=== PATIENT | male | born 1985 | race African-American/Black ===

== ENCOUNTER 2016-05-29 02:34 | Emergency (ER) | payer MEDICARE, OTHER ==
[~2016-05-29] VITALS: Ht 185.4 cm; Wt 99.8 kg
[~2016-05-29 02:34] MED LIST: GEODON20 MG ORAL; IBUPROFEN600 MG ORAL; RISPERDAL0.5 MG ORAL
[2016-05-29] MEDS ORDERED: NKM (02:39)
[2016-05-29 02:47] VITALS: BP 132/76
--- NOTE | 2016-05-29 02:48 | Emergency Room Report ---
History of Present Illness General Chief Complaint: General Complaint Source: Patient, EMS Present Illness HPI Is a 31-year-old male with no past medical history. He presents with chief complaint of multiple complaints. He complaining of headache, right-sided body filling dry, bilateral feet pain, generalized body pain. He [address] He denies any fever chills denies any nausea vomiting. Onset tonight. No other complaint. Allergies: Coded Allergies: No Known Allergies (Unverified , 05/29/16) Patient History Past Medical History: see triage record, old chart reviewed, psych hx Past Surgical History: other Pertinent Family History: none Social History: Denies: drug use Immunizations: other Reviewed Nursing Documentation: PMH: Agreed, PSxH: Agreed Nursing Documentation-PMH Past Medical History: No History, Except For Hx Neurological Problems: Yes - schizophrenia Review of Systems Eye: Denies: blurred vision, eye pain ENT: Denies: ear pain, nose congestion, throat swelling Respiratory: Denies: cough, shortness of breath Cardiovascular: Denies: chest pain, palpitations Gastrointestinal: Denies: abdominal pain, diarrhea, nausea, vomiting Musculoskeletal: Denies: back pain, joint pain Skin: Denies: rash Neurological: Denies: headache, numbness Endocrine: Denies: increased thirst, increased urine Hematologic/Lymphatic: Denies: easy bruising All Other Systems: negative except mentioned in HPI Physical Exam Vital Signs Date Time Temp Pulse Resp B/P Pulse Ox O2 Delivery O2 Flow Rate FiO2 05/29/16 02:35 98.6 117 18 132/76 98 vitals with tachycardia Sp02 EP Interpretation: reviewed, normal General Appearance: well appearing, no apparent distress, alert Head: normocephalic, atraumatic Eyes: bilateral eye EOMI, bilateral eye PERRL ENT: hearing grossly normal, normal pharynx Neck: full range of motion, supple, no meningismus Respiratory: chest non-tender, lungs clear, normal breath sounds Cardiovascular #1: regular rate, rhythm, no murmur Gastrointestinal: normal bowel sounds, non tender, no mass, no organomegaly, no bruit, non-distended Musculoskeletal: back normal, gait/station normal, normal range of motion Psychiatric: mood/affect normal Skin: warm/dry Medical Decision Making Diagnostic Impression: Primary Impression: Encounter for generalized patient complaints Additional Impression: Headache Qualified Codes: G44.209 - Tension-type headache, unspecified, not intractable ER Course Patient with multiple complaints. Exams been unremarkable. Not suicidal homicidal. No delusion or hallucination. We'll discharge home. Last Vital Signs Date Time Temp Pulse Resp B/P Pulse Ox O2 Delivery O2 Flow Rate FiO2 05/29/16 02:35 98.6 117 18 132/76 98 Status: improved Disposition: HOME, SELF-CARE Condition: Stable Additional Instructions: followup with your Dr. in 7 days. Return if worse. FOSTER GUERRA M.D. May 29, 2016 02:48
[2016-05-29 02:55] VITALS: BP 132/76
== END 2016-05-29 02:55 | disposition home or self-care (01) ==
LOC: EDUNIT# 02:34 → EDBD 02:34 → EMR 02:49
DX: G44.209 Tension-type headache, unspecified, not intractable (principal); M79.672 Pain in left foot; M79.671 Pain in right foot; F20.9 Schizophrenia, unspecified
CPT/HCPCS: 99283